=== PATIENT | female | born 1990 | race Caucasian/White ===

== ENCOUNTER 2016-12-06 13:52 | Emergency (ER) | payer SELFPAY ==
[2016-12-06] MEDS ORDERED: ONDANSETRON 4 MG VIAL ONE (16:22)
[2016-12-06] MEDS ORDERED: SODIUM CHLORIDE 0.9% 1,000 ML ONE (16:22)
[2016-12-06] MEDS ORDERED: DIPHENHYDRAMINE 50 MG/ML VIAL ONE (16:56)
[2016-12-06] MEDS ORDERED: METOCLOPRAMIDE 10 MG/2 ML VIAL ONE (16:56)
[2016-12-06] MEDS ORDERED: KETOROLAC 30 MG/ML VIAL ONE (16:56)
== END 2016-12-06 18:56 | disposition home or self-care (01) ==
LOC: ER 13:52
DX: R51 Headache (principal)
CPT/HCPCS: 36415; 71020; 80053; 81001; 83690; 84703; 85025; 87804; 96361; 96374; 96375